=== PATIENT | female | born 1950 | race Caucasian/White ===

== ENCOUNTER → 2017-06-19 | Day surgery (SDC) | payer MEDICARE ==
[~2017-06-19] MED LIST: ASPI81TA82 PO; BUPIVACAINE HCL PF 0.25% 10 ML VIAL ONE; CALCTAB32 PO; CENTTAB9 PO; FISH100020 PO; KETOROLAC TROMETHAMINE 30 MG/ML (IVP) VIAL IV PUSH ONE; LACTATED RINGER'S 1000 ML INJ 1,000 ML ONE; LYSI500C2 PO; MIDAZOLAM HCL 2 MG/2 ML VIAL ONE; NORV5TAB PO; ONDANSETRON HCL 4 MG/2 ML VIAL IV PUSH ONE; PROPOFOL 200 MG/20 ML AMP IV ONE; ceFAZolin INJ 1,000 MG VIAL ONE
--- NOTE | 2017-07-03 20:50 | TN ---
cc: JassirafaelSemajimelda DANG Eusebia Allen ALTON DATE OF SURGERY: 06/19/2017 INDICATIONS: The patient presented to my clinic with continued pain to a painful hammertoe to the right fourth and fifth toes with a painful corn between the digits. She had undergone periodic care, wider shoes, padding without relief of her symptoms and elected to undergo ostectomy with partial phalangectomy of right fifth toe with ostectomy of the right fourth metatarsal head in order to reduce the pressure internally. I discussed with the patient the risks, benefits, potential complications of surgery and she agreed to move forward with the procedure. PROCEDURE IN DETAIL: She was seen in the preop holding by myself, nursing staff and anesthesia where the correct patient, side and site were all confirmed to be correct and the right fourth and fifth toe areas and attention was directed to the right foot after it was prepped and draped in normal sterile fashion. After timeouts were performed as per facility protocol, attention was directed to the dorsal aspect of the right fourth metatarsophalangeal joint area where a linear incision was made over the fourth metatarsophalangeal joint in order to gain access to the lateral aspect of the fourth proximal phalangeal base as well as the lateral aspect of the fourth metatarsal head. Bone was resected from these areas after a dorsal linear capsulotomy was performed. Following removal of the bone, irrigation was performed followed by deep closure with 2-0 nylon suture, followed by closure of the skin with 2-0 nylon suture. Following this, the joint was stressed and found to be stable at the fourth metatarsophalangeal joint. Following this, another incision was made to the dorsal aspect of the fifth digit in order to gain access to the medial aspect of the fifth proximal phalangeal head area. Bone was resected from this area, which corresponded with the level of the hyperkeratotic lesion that had been causing the patient considerable pain. After bone was resected from the area, it was copiously irrigated followed by deep closure with 2-0 Vicryl, followed by closure of the skin with 2-0 nylon suture. The patient tolerated the procedure and anesthesia well and was taken back to PACU with vital signs stable and vascular status intact to the right foot. She will be weightbearing as tolerated in surgical shoe at all times. She will keep the bandage clean, dry and intact and follow up in clinic in 1 week for a dressing change. SHORT OPERATIVE NOTE SURGEON: Eusebia Allen DPM [employer]OURCES DIRECTOR: Staff PREOPERATIVE DIAGNOSIS: Painful hammertoe right fourth and fifth toe with painful corn. POSTOPERATIVE DIAGNOSIS: Painful hammertoe right fourth and fifth toe with painful corn. PROCEDURE: 1. Ostectomy with partial phalangectomy right fifth toe. 2. Ostectomy, right fourth metatarsal and toe. ANESTHESIA: General endotracheal anesthesia plus local consisting of 20 mL 0.25% Marcaine plain. PROPHYLAXIS: 2 grams Ancef IV preop. TOURNIQUET TIME: No tourniquet utilized. SPECIMENS: No specimens. ESTIMATED BLOOD LOSS: Minimal. DISPOSITION: Weightbearing as tolerated in surgical shoe right foot at all times. Keep dressing clean, dry and intact. Followup in clinic in 1 week for a dressing change. ALTON Edmonds// , 07:40 PM , 08:18 PM MINE
== END | disposition home or self-care (01) ==
LOC: ESDC 06:17
PROVIDERS: ATTEND Podiatrist Foot & Ankle Surgery
DX: M20.41 Other hammer toe(s) (acquired), right foot (principal)
CPT/HCPCS: 01480; 28285; J0690; J1885; J2250; J2405; J3010; J7120

== ENCOUNTER → 2017-06-28 | Day surgery (SDC) | payer MEDICARE ==
[~2017-06-28] MED LIST changes: -BUPIVACAINE HCL PF 0.25% 10 ML VIAL ONE; +BUPIVACAINE HCL PF 0.25% 30 ML VIAL ONE; -KETOROLAC TROMETHAMINE 30 MG/ML (IVP) VIAL IV PUSH ONE; -ONDANSETRON HCL 4 MG/2 ML VIAL IV PUSH ONE; +ceFAZolin 1 GM PREMIX 100 ML ONE; -ceFAZolin INJ 1,000 MG VIAL ONE
--- NOTE | 2017-07-03 20:33 | TN ---
cc: LeteodoraSemajimelda DANG Eusebia Allen ALTON DATE OF SURGERY: 06/28/2017 INDICATIONS: The patient presented to my clinic initially with painful hammertoe to the right fourth and fifth toes with a corn. She underwent ostectomy with partial phalangectomy of the right fifth toe as well as ostectomy of the right 4th metatarsal and toe on 06/19/2017. The patient did admit that she was ambulating around her house without her surgical shoe on, despite instructions not to do so, and she was found to have suffered a fourth toe dislocation at the metatarsophalangeal joint in the clinic upon taking of her postoperative x-rays. I discussed with the patient she needed to have that reduced. She agreed to move forward with surgery. The risks, benefits, potential complications were described to her in detail and she agreed to undergo open reduction with pinning of the fourth metatarsophalangeal joint and soft tissue repair of the right foot. PROCEDURE IN DETAIL: She was seen in the preop holding by myself, nursing staff and anesthesia where the correct patient, side and site were all confirmed to be correct and the right foot. She was then taken to the surgical suite in supine position. Right foot was prepped and draped in normal sterile fashion followed by attention directed to the right foot. The incision to the previous area of the fourth metatarsophalangeal joint was opened and access was gained down to the area of the fourth metatarsophalangeal joint capsule. It was noted that the deep repair from the previous surgery sutures had popped open and this is likely what caused the toe to dislocate. The toe was reduced. A 0.45 K-wire was utilized in order to reduce and hold the reduction of the fourth digit to the fourth metatarsal head at the fourth metatarsophalangeal joint using C-arm guidance. Following this, a deep tissue repair using 2-0 Vicryl was performed, followed by 4-0 nylon suture to the skin after irrigation. The patient tolerated the procedure and anesthesia well and was taken back to PACU with vital signs stable and vascular status intact to the right foot. Dressing consisting of Xeroform, 4 x 4's, cast padding and Johnie bandage was applied to the right foot. She will be weightbearing as tolerated to the heel only in surgical shoe with a knee scooter for assistance, which she has already required at home. She will followup in clinic in 1 week for a dressing change. SHORT OPERATIVE NOTE: SURGEON: Mya Allen DPM [employer]LLER SEAM OPERATOR: Staff PREOPERATIVE DIAGNOSIS: Right fourth metatarsophalangeal joint dislocation. POSTOPERATIVE DIAGNOSIS: Right fourth metatarsophalangeal joint dislocation. PROCEDURE PERFORMED: Open reduction with pinning of fourth metatarsophalangeal joint and soft tissue repair, right foot. SPECIMENS: None. ESTIMATED BLOOD LOSS: Minimal. PROPHYLAXIS: Two grams Ancef IV preop given. TOURNIQUET TIME: No tourniquet utilized. DISPOSITION Weightbearing as tolerated with surgical shoe on the foot at all times and knee scooter for assistance. Followup in clinic in 1 week for a dressing change. Keep clean, dry and intact. ALTON Edmonds/ , 07:44 PM , 08:32 PM
== END | disposition home or self-care (01) ==
LOC: ESDC 06:10
PROVIDERS: ATTEND Podiatrist Foot & Ankle Surgery
DX: S93.124D Dislocation of metatarsophalangeal joint of right lesser toe(s), subsequent encounter (principal)
CPT/HCPCS: 01462; 28636; 73620; 76000; J0690; J2250; J3010; J7120